=== PATIENT | male | born 1945 | race Two or more races ===

== ENCOUNTER 2018-05-10 12:46 | Inpatient (IN) | payer BC, MEDICARE ==
[~2018-05-10] VITALS: Ht 170.2 cm; Wt 97.1 kg
[2018-05-10 14:45] LABS: BASOPHILS % 0.9 % (0.0-2.0); EOSINOPHILS % 3.3 % (0.0-5.0); HEMATOCRIT. 29.3 % (42.0-52.0); HEMOGLOBIN. 9.4 g/dL (14.0-18.0); LYMPHOCYTES % 16.4 % (20.0-50.0); MEAN CORPUSCULAR HEMOGLOBIN 28.3 pg (28.0-32.0); MEAN CORPUSCULAR VOLUME 88.1 fL (80.0-94.0); MEAN PLATELET VOLUME 9.6 fl (7.4-10.4); MONOCYTES % 10.4 % (2.0-8.0); PLATELET 186 x1000/uL (130-400); RED BLOOD CELL COUNT 3.33 mill/uL (4.7-6.1); RED CELL DISTRIBUTION WIDTH 17.3 % (11.6-14.6)
[2018-05-10 14:49] LABS: CHLORIDE 110 mEq/L (98-107)
[2018-05-10 14:55] LABS: INR 1.9; PROTHROMBIN TIME 18.9 sec (9.1-11.1)
[2018-05-10] MEDS ORDERED: DEXTROSE 50% WATER 50ML SYRINGE IV ONE (15:15)
[2018-05-10] MEDS ORDERED: DONE23TA3 MT (16:33)
[2018-05-10] MEDS ORDERED: FURO20TA4 MT (16:33)
[2018-05-10] MEDS ORDERED: DONE10TA43 MT (16:33)
[2018-05-10] MEDS ORDERED: ATOR80TA MT (16:33)
[2018-05-10] MEDS ORDERED: DILT180T11 MT (17:02)
[2018-05-10] MEDS ORDERED: WARF1TAB85 MT (17:02)
[2018-05-10] MEDS ORDERED: MAGNESIUM/ALUMINUM HYDROXIDE/SIMETHICONE 30ML UDC PO PRN (18:00)
[2018-05-10] MEDS ORDERED: IPRATROPIUM/ALBUTEROL 0.5-3(2.5)MG/3ML NEB INH PRN (18:00)
[2018-05-10] MEDS ORDERED: GUAIFENESIN 200MG/10ML SUGAR FREE UDC PO PRN (18:00)
[2018-05-10] MEDS ORDERED: ACETAMINOPHEN 325MG TABLET PO PRN (18:00)
[2018-05-10] MEDS ORDERED: CLONIDINE 0.1MG TABLET PO PRN (18:00)
[2018-05-10] MEDS ORDERED: DEXTROSE 50% WATER 50ML SYRINGE IV PRN (18:00)
[2018-05-10] MEDS ORDERED: ONDANSETRON HCL 4MG/2ML INJ IV PRN (18:00)
[2018-05-10] MEDS ORDERED: DIPHENHYDRAMINE 50MG/ML VIAL IV PRN (18:00)
[2018-05-10] MEDS: DEXT 5%/0.45% NACL 1000ML 1,000 ML IV SCH (20:09)
[2018-05-11] VITALS (10 sets, daily range): BP systolic 124–159; BP diastolic 47–95
[2018-05-11] MEDS: BLOOD SUGAR DIAGNOSTIC STRIP TEST SCH ×4 (05:53→20:48)
[2018-05-11 07:23] LABS: CHLORIDE 108 mEq/L (98-107)
[2018-05-11 07:34] LABS: BASOPHILS % 0.7 % (0.0-2.0); EOSINOPHILS % 4.4 % (0.0-5.0); HEMATOCRIT. 27.8 % (42.0-52.0); HEMOGLOBIN. 8.9 g/dL (14.0-18.0); MEAN CORPUSCULAR HEMOGLOBIN 27.9 pg (28.0-32.0); MEAN CORPUSCULAR VOLUME 87.5 fL (80.0-94.0); MEAN PLATELET VOLUME 9.6 fl (7.4-10.4); MONOCYTES % 11.7 % (2.0-8.0); NEUTROPHILS % 62.2 % (40.0-76.0); PLATELET 167 x1000/uL (130-400); RED BLOOD CELL COUNT 3.18 mill/uL (4.7-6.1); RED CELL DISTRIBUTION WIDTH 17.2 % (11.6-14.6)
[2018-05-11] MEDS: INSULIN LISPRO 100 UNITS/ML SUBCUT SCH ×4 (08:58→21:01)
[2018-05-11 09:52] LABS: INR 1.9; PROTHROMBIN TIME 18.8 sec (9.1-11.1)
[2018-05-11] MEDS: ASPIRIN 81MG EC TABLET PO SCH (11:41)
[2018-05-11] MEDS ORDERED: WARFARIN SODIUM 2.5MG TABLET PO ONE ×2 (13:15→14:45)
[2018-05-11] MEDS: DEXT 5%/0.45% NACL 1000ML 1,000 ML IV SCH (17:15)
[2018-05-11] MEDS: DOCUSATE SODIUM 250MG CAPSULE PO SCH (17:56)
[2018-05-11] MEDS ORDERED: WARFARIN SODIUM 1MG TABLET PO SCH (18:00)
[2018-05-11] MEDS ORDERED: WARFARIN SODIUM 4MG TABLET PO SCH (18:00)
[2018-05-11] MEDS: ATORVASTATIN CALCIUM 10MG TABLET PO SCH (20:48)
[2018-05-11] MEDS: MAGNESIUM HYDROXIDE 400MG/5ML 30ML UDC PO SCH (20:48)
[2018-05-12] VITALS (11 sets, daily range): BP systolic 114–167; BP diastolic 60–90
[2018-05-12] MEDS ORDERED: BISACODYL 10MG SUPP PR SCH (00:45)
[2018-05-12] MEDS: BLOOD SUGAR DIAGNOSTIC STRIP TEST SCH ×4 (06:18→21:56)
[2018-05-12 07:20] LABS: INR 1.9
[2018-05-12] MEDS: INSULIN LISPRO 100 UNITS/ML SUBCUT SCH ×4 (08:25→22:02)
[2018-05-12] MEDS: MAGNESIUM HYDROXIDE 400MG/5ML 30ML UDC PO SCH (08:26)
[2018-05-12] MEDS: ASPIRIN 81MG EC TABLET PO SCH (08:26)
[2018-05-12] MEDS: DOCUSATE SODIUM 250MG CAPSULE PO SCH (08:26)
[2018-05-12] MEDS ORDERED: SORBITOL 70% SOLN 30ML PO SCH (10:00)
[2018-05-12] MEDS ORDERED: WARFARIN SODIUM 1MG TABLET PO SCH (14:30)
[2018-05-12] MEDS ORDERED: WARFARIN SODIUM 5MG TABLET PO SCH (18:00)
[2018-05-12] MEDS: ATORVASTATIN CALCIUM 10MG TABLET PO SCH (21:55)
[2018-05-12] MEDS: AMLODIPINE 5MG TABLET PO SCH (21:57)
[2018-05-13] VITALS (12 sets, daily range): BP systolic 129–169; BP diastolic 54–98
[2018-05-13] MEDS: BLOOD SUGAR DIAGNOSTIC STRIP TEST SCH ×4 (06:19→21:10)
[2018-05-13 06:56] LABS: PROTHROMBIN TIME 20.2 sec (9.1-11.1)
[2018-05-13] MEDS: INSULIN LISPRO 100 UNITS/ML SUBCUT SCH ×4 (07:10→21:25)
[2018-05-13] MEDS: FUROSEMIDE 20MG TABLET PO SCH (09:06)
[2018-05-13] MEDS: MAGNESIUM HYDROXIDE 400MG/5ML 30ML UDC PO SCH (09:06)
[2018-05-13] MEDS: DOCUSATE SODIUM 250MG CAPSULE PO SCH (09:06)
[2018-05-13] MEDS: ASPIRIN 81MG EC TABLET PO SCH (09:06)
[2018-05-13] MEDS: AMLODIPINE 5MG TABLET PO SCH ×2 (09:08→21:24)
[2018-05-13 12:48] LABS: INR 2.2; PROTHROMBIN TIME 21.4 sec (9.1-11.1)
[2018-05-13] MEDS: DOXAZOSIN MESYLATE 2MG TABLET PO SCH (17:46)
[2018-05-13] MEDS ORDERED: WARFARIN SODIUM 3MG TABLET PO SCH (18:00)
[2018-05-13] MEDS: ATORVASTATIN CALCIUM 10MG TABLET PO SCH (21:24)
[2018-05-14 04:00] VITALS: BP 135/51
[2018-05-14] MEDS: BLOOD SUGAR DIAGNOSTIC STRIP TEST SCH ×4 (06:33→20:57)
[2018-05-14] MEDS: INSULIN LISPRO 100 UNITS/ML SUBCUT SCH ×4 (06:43→20:57)
[2018-05-14 07:25] LABS: INR 2.7; PROTHROMBIN TIME 26.5 sec (9.1-11.1)
[2018-05-14 08:00] VITALS: BP 132/58
[2018-05-14] MEDS: FUROSEMIDE 20MG TABLET PO SCH (08:30)
[2018-05-14] MEDS: AMLODIPINE 5MG TABLET PO SCH ×2 (08:30→21:01)
[2018-05-14] MEDS: ASPIRIN 81MG EC TABLET PO SCH (08:30)
[2018-05-14] MEDS: MAGNESIUM HYDROXIDE 400MG/5ML 30ML UDC PO SCH (08:31)
[2018-05-14] MEDS: DOCUSATE SODIUM 250MG CAPSULE PO SCH (08:31)
[2018-05-14] MEDS: DOXAZOSIN MESYLATE 2MG TABLET PO SCH ×2 (08:33→17:00)
[2018-05-14 12:00] VITALS: BP 140/56
[2018-05-14 16:00] VITALS: BP 130/59
[2018-05-14] MEDS ORDERED: WARFARIN SODIUM 2MG TABLET PO SCH (18:00)
[2018-05-14 20:00] VITALS: BP 131/62
[2018-05-14] MEDS: ATORVASTATIN CALCIUM 10MG TABLET PO SCH (20:56)
[2018-05-15] VITALS: BP 138/58
[2018-05-15 04:00] VITALS: BP 130/54
[2018-05-15 06:28] LABS: INR 2.8; PROTHROMBIN TIME 27.5 sec (9.1-11.1)
[2018-05-15] MEDS: INSULIN LISPRO 100 UNITS/ML SUBCUT SCH ×3 (07:00→17:23)
[2018-05-15] MEDS: BLOOD SUGAR DIAGNOSTIC STRIP TEST SCH ×3 (07:00→17:21)
[2018-05-15 08:00] VITALS: BP 132/46
[2018-05-15] MEDS: AMLODIPINE 5MG TABLET PO SCH (09:00)
[2018-05-15] MEDS: DOCUSATE SODIUM 250MG CAPSULE PO SCH (09:43)
[2018-05-15] MEDS: ASPIRIN 81MG EC TABLET PO SCH (09:43)
[2018-05-15] MEDS: FUROSEMIDE 20MG TABLET PO SCH (09:43)
[2018-05-15] MEDS: MAGNESIUM HYDROXIDE 400MG/5ML 30ML UDC PO SCH (09:43)
[2018-05-15] MEDS: DOXAZOSIN MESYLATE 2MG TABLET PO SCH ×2 (09:44→17:20)
[2018-05-15 12:37] VITALS: BP 136/51
[2018-05-15] MEDS ORDERED: FUROSEMIDE 40MG/4ML VIAL IVP NR (14:30)
[2018-05-15 16:35] VITALS: BP 134/50
[2018-05-15] MEDS ORDERED: WARFARIN SODIUM 2MG TABLET PO NR (18:00)
[2018-05-15] MEDS ORDERED: WARFARIN SODIUM 1MG TABLET PO NR (18:00)
[2018-05-15 18:38] VITALS: BP 134/50
== END 2018-05-15 19:10 | disposition home or self-care (01) | DRG 64 ==
LOC: ER 12:46 → 3WST 15:49 → EDBEDREQSVC 15:53 → EDBEDREQ 15:53 → ENRESERV 05-11 01:41 → 8WST 05-13 23:25
PROVIDERS: ADMIT Internal Medicine; ATTEND Internal Medicine
DX: I63.519 Cerebral infarction due to unspecified occlusion or stenosis of unspecified middle cerebral artery (principal); G93.41 Metabolic encephalopathy; I13.0 Hypertensive heart and chronic kidney disease with heart failure and stage 1 through stage 4 chronic kidney disease, or unspecified chronic kidney disease; N17.9 Acute kidney failure, unspecified; G81.94 Hemiplegia, unspecified affecting left nondominant side; J84.9 Interstitial pulmonary disease, unspecified; E11.649 Type 2 diabetes mellitus with hypoglycemia without coma; N18.9 Chronic kidney disease, unspecified; D64.9 Anemia, unspecified; I48.2 Chronic atrial fibrillation; R62.7 Adult failure to thrive; I25.10 Atherosclerotic heart disease of native coronary artery without angina pectoris; F17.210 Nicotine dependence, cigarettes, uncomplicated; I50.9 Heart failure, unspecified; I27.20 Pulmonary hypertension, unspecified; E11.22 Type 2 diabetes mellitus with diabetic chronic kidney disease; Z95.2 Presence of prosthetic heart valve; Z95.1 Presence of aortocoronary bypass graft; Z79.01 Long term (current) use of anticoagulants; Z82.49 Family history of ischemic heart disease and other diseases of the circulatory system; Z79.899 Other long term (current) drug therapy; Z79.82 Long term (current) use of aspirin
CPT/HCPCS: 36415; 70551; 71045; 80048; 80061; 82962; 83735; 83880; 84100; 84484; 92523; 93005; 93306; 93880; 93970; 96374; 97116; 97162; 97166; 97530; 97535; 99291; J1815; J1940

== ENCOUNTER 2018-11-28 13:32 | Emergency (ER) | payer MEDICARE ==
[~2018-11-28] VITALS: Ht 167.6 cm; Wt 91.0 kg
[~2018-11-28 13:32] MED LIST: ATOR80TA MT; DILT180T11 MT; DONE10TA43 MT; DONE23TA3 MT; FURO20TA4 MT; WARF1TAB85 MT
[2018-11-28] MEDS ORDERED: TETANUS, DIPHTHERIA, PERTUSSIS VAC/PF 0.5ML (>7YR OLD) IM ONE (14:30)
[2018-11-28 14:46] LABS: BASOPHILS % 0.4 % (0.0-2.0); EOSINOPHILS % 1.7 % (0.0-5.0); HEMATOCRIT. 32.9 % (42.0-52.0); HEMOGLOBIN. 11.3 g/dL (14.0-18.0); LYMPHOCYTES % 11.4 % (20.0-50.0); MEAN CORPUSCULAR HEMOGLOBIN 30.3 pg (28.0-32.0); MEAN CORPUSCULAR VOLUME 88.3 fL (80.0-94.0); MEAN PLATELET VOLUME 8.8 fl (7.4-10.4); MONOCYTES % 7.1 % (2.0-8.0); NEUTROPHILS % 79.4 % (40.0-76.0); PLATELET 171 x1000/uL (130-400); RED BLOOD CELL COUNT 3.73 mill/uL (4.7-6.1); RED CELL DISTRIBUTION WIDTH 14.4 % (11.6-14.6)
[2018-11-28 14:49] LABS: CHLORIDE 103 mEq/L (98-107)
[2018-11-28 14:55] LABS: INR 3.1; PROTHROMBIN TIME 30.8 sec (9.6-11.0)
[2018-11-28] MEDS ORDERED: SODIUM CHLORIDE 0.9% 1,000 ML IV ONE (16:45)
[2018-11-28 17:41] LABS: CLARITY URINE CLEAR (CLEAR); COLOR URINE YELLOW (YELLOW); KETONES URINE NEGATIVE (NEGATIVE); LEUKOCYTE ESTERASE URINE NEGATIVE (NEGATIVE); NITRITE URINE NEGATIVE (NEGATIVE); OCCULT BLOOD URINE 1+ (NEGATIVE); PROTEIN URINE 1+ (NEGATIVE); SPECIFIC GRAVITY URINE 1.014 (1.005-1.030); UROBILINOGEN URINE 0.2 E.U./dL (0.2-1.0)
[2018-11-28 21:30] VITALS: BP 134/69
== END 2018-11-28 22:06 | disposition short-term general hospital (02) ==
LOC: ER 13:32
DX: R42 Dizziness and giddiness (principal); S60.512A Abrasion of left hand, initial encounter; R41.82 Altered mental status, unspecified; N28.9 Disorder of kidney and ureter, unspecified; I11.9 Hypertensive heart disease without heart failure; F03.90 Unspecified dementia, unspecified severity, without behavioral disturbance, psychotic disturbance, mood disturbance, and anxiety; E11.9 Type 2 diabetes mellitus without complications; I48.91 Unspecified atrial fibrillation; Z86.73 Personal history of transient ischemic attack (TIA), and cerebral infarction without residual deficits; Z95.1 Presence of aortocoronary bypass graft; Z79.01 Long term (current) use of anticoagulants; W19.XXXA Unspecified fall, initial encounter; Y93.89 Activity, other specified; Y92.018 Other place in single-family (private) house as the place of occurrence of the external cause
CPT/HCPCS: 36415; 70450; 71045; 73130; 80053; 81003; 82962; 84484; 85025; 85610; 90471; 90715; 93005; 96360; 99285; J7030